=== PATIENT | male | born 1995 | race Caucasian/White ===

== ENCOUNTER 2018-12-18 14:53 | Emergency (ER) | payer OTHER ==
[~2018-12-18] VITALS: Ht 188 cm; Wt 112.0 kg
[2018-12-18 14:58] VITALS: BP 114/80
[2018-12-18] MEDS ORDERED: cefTRIAXone 250 MG in LIDOCAINE MPF 1% - 5 mL VIAL 0.9 ML IM ONE (16:40)
[2018-12-18] MEDS ORDERED: AZITHROMYCIN 250 MG TAB PO ONE (16:40)
[2018-12-18 17:03] VITALS: BP 114/80
[2018-12-20 06:07] LABS: CHLAMYDIA TRACHOMATIS AMP DNA Negative (Negative)
== END 2018-12-18 17:02 | disposition home or self-care (01) ==
LOC: MED 14:53
DX: N45.1 Epididymitis (principal); F12.10 Cannabis abuse, uncomplicated; Z88.2 Allergy status to sulfonamides; Z72.51 High risk heterosexual behavior
CPT/HCPCS: 36415; 76870; 87491; 96372; 99284; J0696; J2001; Q0092; 99283

== ENCOUNTER 2019-04-13 21:36 | Emergency (ER) | payer OTHER ==
[~2019-04-13] VITALS: Ht 182.9 cm; Wt 104.3 kg
[2019-04-13 21:45] VITALS: BP 149/76
--- NOTE | 2019-04-13 21:48 | NUR ---
TO LOBBY A/W BED VIA WHEELCHAIR
--- NOTE | 2019-04-14 00:38 | NUR ---
PT WHEELCHAIRED TO ER BED 08
--- NOTE | 2019-04-14 00:40 | NUR ---
PT 24 Y/O MALE BIB MOTHER FOR C/O R FOOT PAIN. HEMATOMA NOTED ON R BIG TOE. EDEMA AND BRUSING NOTED ON BIG TOE AND INDEX TOE. PT C/O 10/10 FOOT PAIN. PEDAL PLUSES FELT BILAT +3. " I WAS MOVING [place] AND I LOST GIRP ON IT. IT LANDED RIGHT ON MY FOOT. IT HURTS TO WALK NOW." PT AXO X4. RESPIRATIONS ARE EVEN AND UNLABORED. SKIN IS WARM AND DRY TO TOUCH. PT AFEBRILE. DENIES COUGH, N/V/D. PT RESTING UPRIGHT IN BED EYES OPEN AND TALKING TO MOTHER AND GIRLFREIND. BED LOCKED AND IN LOWEST POSITION. MED HX: NONE ALLERGIES: SULFA
[2019-04-14] MEDS ORDERED: fentaNYL 0.05 MG/ML VIAL IM ONE (01:25)
--- NOTE | 2019-04-14 01:49 | NUR ---
PT R TOE COVERED WITH GAUZE ROLL AFTER NON ADHERENT DRESSING PLACED ON WOUND.
--- NOTE | 2019-04-14 01:50 | NUR ---
POSTERIOR SHORT LEG SPLINT PLACED ON PT R LEG, WITH SPECIAL INSTRUCTION FROM DR CAIN THAT SPLINT TRAVEL TO THE TOES. WRAPPED WITH AE WRAP. +CSM
--- NOTE | 2019-04-14 01:58 | NUR ---
PT GIVEN INSTRUCTION ON PROPER USE OF CRUTCHES, WITH CRUTCHES FITTED TO PT HEIGHT AND ARM LENGTH. PT GIVEN INSTRUCTION ON PROPER USE OF CRUTCHES, INCLUDING SITTING TO STANDING AND VICE VERSA, ASCENDING/DESCENDING STAIRS, AND WALKING. PT DEMONSTRATED SAFE USE FOR APPROXIMATELY 40 FEET, PT STATED HE FELT COMFORTABLE WITH USE.
--- NOTE | 2019-04-14 02:00 | NUR ---
PT EDUCATED ON CRUTCH USE AND VERBALIZES UNDERSTANDING. POSTERIOR SHORT LEG SPLINT PLACED ON PT R LEG BY ERIS SMALLS. POSITIVE CMS S/P PLACEMENT OF SPLINT.
--- NOTE | 2019-04-14 02:10 | NUR ---
Patient discharged with v/s stable. Written and verbal after care instructions given and explained. Patient alert, oriented and verbalized understanding of instructions. Ambulatory with steady gait. All questions addressed prior to discharge. ID band removed. Patient advised to follow up with PMD. Rx of MOTRIN, TRAMADOL given. Patient educated on indication of medication including possible reaction and side effects. Opportunity to ask questions provided and answered.
[2019-04-14 02:14] VITALS: BP 149/76
== END 2019-04-14 02:10 | disposition home or self-care (01) ==
LOC: MED 21:36
DX: S92.411A Displaced fracture of proximal phalanx of right great toe, initial encounter for closed fracture (principal); F12.90 Cannabis use, unspecified, uncomplicated; Z88.2 Allergy status to sulfonamides; W20.8XXA Other cause of strike by thrown, projected or falling object, initial encounter; Y93.89 Activity, other specified; Y92.098 Other place in other non-institutional residence as the place of occurrence of the external cause; Y99.8 Other external cause status
CPT/HCPCS: 29515; 73630; 96372; 99283; J3010